=== PATIENT | female | born 1975 | race Caucasian/White ===

== ENCOUNTER 2020-05-02 08:40 | Outpatient (CLI) | payer BC, SELFPAY ==
--- NOTE | 2020-05-02 08:48 | MM_ITS ---
WS: [id number] BILATERAL DIGITAL SCREENING MAMMOGRAPHY WITH CAD CLINICAL INFORMATION: BREAST DENSITY HISTORY: Right breast soreness COMPARISON: TECHNIQUE: Bilateral CC and MLO views. FINDINGS: Scattered fibroglandular densities bilaterally. Stable ovoid nodule 12:00 position right breast measu ring 9 mm. A few additional stable well-circumscribed isodense nodules. No suspicious focal mass, asy mmetry, calcifications, or architectural distortion. Ultrasound of the right breast is pending in the area of concern. ULTRASOUND BREAST RIGHT TECHNIQUE: Ultrasound right breast focused area of concern. CLINICAL INFORMATION: BREAST DENSITY COMPARISON: None. FINDINGS: Ultrasound right breast 12:00 position. Hypoechoic and partially cystic appearing lesion with interna l echoes and internal debris measuring 6.7 x 5.4 x 5.7 mm. Small amount of peripheral nodularity. Thi s most likely represents a complex cyst but Recommend further evaluation with ultrasound-guided breas t biopsy/aspiration. MM/[place] [id number] IMPRESSION: BI-RADS: 4A-Suspicious: Low FOLLOW UP: US Guided Biopsy Recommended
== END 2020-05-02 08:41 | disposition home or self-care (01) ==
LOC: RADSHAW 08:44
PROVIDERS: PCP Family Medicine; Visit Provider Family Medicine
DX: N64.4 Mastodynia (principal); N63.15 Unspecified lump in the right breast, overlapping quadrants
CPT/HCPCS: 76642; 77066

== ENCOUNTER 2022-12-15 09:22 | Outpatient (CLI) | payer BC, SELFPAY ==
--- NOTE | 2022-12-15 09:31 | MM_ITS ---
WS: [id number] BILATERAL SCREENING DIGITAL TOMOSYNTHESIS MAMMOGRAM WITH CAD HISTORY: SCREENING COMPARISON: 05/02/2020, 06/16/2016 and 06/28/2015 Bilateral CC and MLO views with tomosynthesis and synthetic mammography submitted. Computer aided det ection analyzed. Breast composition: There are scattered areas of fibroglandular density. No suspicious masses, microc alcifications or architectural distortion. Nodules and asymmetries are stable. MM/[place] [id number] IMPRESSION: BI-RADS: 2-Benign FOLLOW UP: 1 Year Follow-up
== END 2022-12-15 09:23 | disposition home or self-care (01) ==
LOC: RAD 09:26
PROVIDERS: PCP Family Medicine; Visit Provider Family Medicine
DX: Z12.31 Encounter for screening mammogram for malignant neoplasm of breast (principal)
CPT/HCPCS: 77063; 77067

== ENCOUNTER 2022-12-21 14:00 | Oncology outpatient (recurring) (ONCR) | payer BC, SELFPAY ==
[2022-12-10] MEDS: acetaminophen 325 mg Tablet 650 MG PO (14:43)
[2022-12-10] MEDS: diphenhydrAMINE 50 mg/mL SDV 1mL 25 MG IVP (14:45)
[2022-12-10] MEDS: sodium chloride 0.9% 250 ML 75 ML IV (14:46)
[2022-12-10] MEDS: iron sucrose 200 MG in sodium chloride 0.9% (100 ml) 100 ML 220 MG IV (14:51)
[2022-12-10 15:42] VITALS: BP 138/90; PULSE 90; RESP 16; TEMP 36.7; O2SAT 99
[2022-12-14] MEDS: diphenhydrAMINE 50 mg/mL SDV 1mL 25 MG IVP (14:24)
[2022-12-14] MEDS: acetaminophen 325 mg Tablet 650 MG PO (14:24)
[2022-12-14] MEDS: sodium chloride 0.9% 250 ML IV (14:25)
[2022-12-14] MEDS: iron sucrose 200 MG in sodium chloride 0.9% (100 ml) 100 ML 220 MG IV (14:31)
[2022-12-14 15:19] VITALS: BP 117/78; PULSE 83; RESP 16; TEMP 36.1; O2SAT 97
[2022-12-16] MEDS: acetaminophen 325 mg Tablet 650 MG PO (14:04)
[2022-12-16] MEDS: diphenhydrAMINE 50 mg/mL SDV 1mL 25 MG IVP (14:04)
[2022-12-16] MEDS: sodium chloride 0.9% 250 ML 75 ML IV (14:04)
[2022-12-16] MEDS: iron sucrose 200 MG in sodium chloride 0.9% (100 ml) 100 ML 220 MG IV (14:23)
[2022-12-16 15:20] VITALS: BP 113/76; PULSE 81; RESP 16; TEMP 36.1; O2SAT 98
[2022-12-18] MEDS: sodium chloride 0.9% 250 ML 75 ML IV (09:56)
[2022-12-18] MEDS: acetaminophen 325 mg Tablet 650 MG PO (09:56)
[2022-12-18] MEDS: diphenhydrAMINE 50 mg/mL SDV 1mL 25 MG IVP (09:56)
[2022-12-18] MEDS: iron sucrose 200 MG in sodium chloride 0.9% (100 ml) 100 ML 220 MG IV (10:26)
[2022-12-18 11:16] VITALS: BP 117/81; PULSE 80; RESP 16; TEMP 36.5; O2SAT 98
[2022-12-21] MEDS: diphenhydrAMINE 50 mg/mL SDV 1mL 25 MG IVP (13:48)
[2022-12-21] MEDS: acetaminophen 325 mg Tablet 650 MG PO (13:49)
[2022-12-21] MEDS: sodium chloride 0.9% 250 ML 75 ML IV (13:50)
[2022-12-21] MEDS: iron sucrose 200 MG in sodium chloride 0.9% (100 ml) 100 ML 220 MG IV (14:09)
[2022-12-21 14:57] VITALS: BP 120/83; PULSE 92; RESP 16; TEMP 36.3; O2SAT 98
== END 2023-01-08 23:59 | disposition home or self-care (01) ==
PROVIDERS: PCP Family Medicine; Visit Provider Family Medicine
DX: E61.1 Iron deficiency (principal)
CPT/HCPCS: 96365; 96375; J1200; J1756; J7050

== ENCOUNTER 2024-03-17 11:42 | Outpatient (CLI) | payer BC, SELFPAY ==
--- NOTE | 2024-03-17 11:47 | MM_ITS ---
WS: [id number] BILATERAL SCREENING DIGITAL TOMOSYNTHESIS MAMMOGRAM WITH CAD HISTORY: SCREENING COMPARISON: 12/15/2022, 05/02/2020 Bilateral CC and MLO views with tomosynthesis and synthetic mammography submitted. Computer aided det ection analyzed. Breast composition: There are scattered areas of fibroglandular density. No suspicious masses, microc alcifications or architectural distortion. Nodule which is probably a lymph node is unchanged along t he inferior LEFT breast. No new mass or nodule. No suspicious grouping of calcifications. MM/[place] [id number] IMPRESSION: BI-RADS: 2-Benign FOLLOW UP: 1 Year Follow-up
== END 2024-03-17 11:43 | disposition home or self-care (01) ==
LOC: RAD 11:43
PROVIDERS: PCP Family Medicine; Visit Provider Family Medicine
DX: Z12.31 Encounter for screening mammogram for malignant neoplasm of breast (principal); R92.323 Mammographic fibroglandular density, bilateral breasts; N63.20 Unspecified lump in the left breast, unspecified quadrant
CPT/HCPCS: 77063; 77067

== ENCOUNTER 2024-06-07 19:23 | Emergency (ER) | payer BC, SELFPAY ==
[2024-06-07 19:27] VITALS: BP 160/81; PULSE 104; RESP 18; TEMP 37; O2SAT 100; BMI 35.1
--- NOTE | 2024-06-07 19:30 | XRR_ITS ---
PROCEDURE INFORMATION: Exam: XR Chest Exam date and time: 06/07/2024 7:57 PM Age: 49 years old Clinical indication: Dyspnea; Additional info: SOB TECHNIQUE: Imaging protocol: Radiologic exam of the chest. Views: 1 view. COMPARISON: No relevant prior studies available. FINDINGS: Lungs: Unremarkable. No consolidation. Pleural spaces: Unremarkable. No pleural effusion. No pneumothorax. Heart/Mediastinum: Unremarkable. No cardiomegaly. Bones/joints: Unremarkable. XR/XR chest 1V portable [id number] IMPRESSION: No acute findings.
[2024-06-07 19:42] LABS: Basophils % 0.3 %; Eosinophils # 0.1 10^3/uL (0.0-0.8); Eosinophils % 1.5 %; Hematocrit 30.5 % (36-47); Lymphocytes # 2.4 10^3/uL (0.8-4.8); Lymphocytes % 27.7 %; Mean Corpuscular HGB Conc 28.2 g/dL (30-55); Mean Corpuscular Hemoglobin 19.2 pg (27-33); Mean Corpuscular Volume 68.2 fl (85-98); Mean Platelet Volume 9.2 fL (7.4-10.4); Monocytes # 0.4 10^3/uL (0.2-0.9); Monocytes % 4.2 %; Neutrophils # 5.81 10^3/uL (1.8-7.7); Nucleated Red Blood Cells % 0 %; Platelet Count 354 10^3/cmm (157-399); Red Blood Count 4.47 10^6/uL (3.85-5.65); Red Cell Distribution Width 20.7 % (12.1-15.1); White Blood Count 8.81 10^3/uL (3.29-11.43)
--- NOTE | 2024-06-07 19:52 | ECG_ITS ---
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 Measurements Intervals [place] Rate: 96 P: 32 GA: 149 QRS: 2 QRSD: 92 T: 18 QT: 355 QTc: 449 Interpretive Statements SINUS RHYTHM MINIMAL VOLTAGE CRITERIA FOR LVH, CONSIDER NORMAL VARIANT [MEETS CRITERIA IN ONE OF: R(aVL), S(V1), R(V5), R(V5/V6)+S(V1)] No previous ECG available for comparison Electronically Signed On 06-08-2024 9:02:59 CDT by Malachi Joaquin M.D. [id number]
[2024-06-07 19:56] VITALS: BP 150/111; PULSE 93; RESP 18; O2SAT 100
--- NOTE | 2024-06-07 19:59 | ED_ITS ---
HPI - Recheck/Abnormal Lab/Rx 2 General: Chief Complaint: Recheck/Abnormal Lab/Rx Stated Complaint: sob Time Seen by Provider: 06/07/24 19:45 History of Present Illness: Patient has had worsening exertional dyspnea for about a week. She says finally her made her come in today. Says she was post to be getting iron infusions but has not been. Has mild cough. No chest pain. No abdominal pain. No nausea or vomiting. No lower extremity swelling. Related Data Allergies Allergy/AdvReac Type Severity Reaction Status Date / Time No Known Allergies Allergy Verified 12/10/22 14:34 Review of Systems 2 Narrative: Constitutional symptoms: Negative except as documented in HPI. Skin symptoms: Negative except as documented in HPI. Eye symptoms: Negative except as documented in HPI. ENMT symptoms: Negative except as documented in HPI. Respiratory symptoms: Negative except as documented in HPI. Cardiovascular symptoms: Negative except as documented in HPI. Gastrointestinal symptoms: Negative except as documented in HPI. Genitourinary symptoms: Negative except as documented in HPI. Musculoskeletal symptoms: Negative except as documented in HPI. Neurologic symptoms: Negative except as documented in HPI. Psychiatric symptoms: Negative except as documented in HPI. Endocrine symptoms: Negative except as documented in HPI. Physical Exam 2 Narrative: EXAM NARRATIVE: General: Alert, no acute distress. Skin: Warm, dry. Head: Normocephalic, atraumatic. Neck: Supple, trachea midline. Eye: Extraocular movements are intact. Ears, nose, mouth and throat: mucosa moist. Cardiovascular: Regular, Normal peripheral perfusion. Respiratory: Lungs are clear to auscultation, respirations are non-labored, breath sounds are equal, Symmetrical chest wall expansion. Gastrointestinal: Soft, Nontender, Non distended Musculoskeletal: Normal ROM, no deformity. Neurological: Alert and oriented, No focal neurological deficit observed. Psychiatric: Cooperative, appropriate mood & affect. Course 2 Vital Signs: Vital signs: Vital Signs Temperature 98.6 F 06/07/24 19:27 Pulse Rate 93 06/07/24 19:56 Respiratory Rate 18 06/07/24 19:56 Blood Pressure 150/111 06/07/24 19:56 Pulse Oximetry 100 06/07/24 19:56 Oxygen Delivery Me thod Room Air 06/07/24 19:56 [facility] - Recheck/Abnormal Lab/Rx Medical Decision Making Medical decision making: Differential diagnosis for patient presenting with generalized weakness including but not limited to and based on the above HPI, review of systems and physical exam: Sepsis. Dehydration. Renal failure. Electrolyte abnormalities. Anemia. Congestive heart failure. Hypotension. Coronary syndrome. Hepatitis. Cirrhosis. Infections such as pneumonia, urinary tract infection, Tick bourne illness, Cellulitis, Viral infections including influenza and Covid-19. Workup: labwork and lab/exam driven imaging ordered to evaluate, rule in and rule out above pathologies. EKG: Time 1951. Normal sinus rhythm, No ST-T changes, no ectopy, normal CO & QRS intervals, This was reviewed and interpreted by myself the ER physician at 1954. Chest x-ray: No acute process. No infiltrate. No pneumothorax. This was reviewed and interpreted by myself the ER physician. Lab Review: Laboratory results were reviewed and interpreted by myself the emergency room physician. Patient does have anemia with a hemoglobin of 8.6 but this does not warrant transfusion at this time. MCV is 68 which would indicate iron deficiency anemia. No leukocytosis. No renal failure. I reviewed the patient's medical record. Reexamination: Patient remained stable. No increased work of breathing. No altered mental status. No focal motor deficits. Discussed that she is not at the point of needing transfusion but she does need to get back on her iron supplementation and follow with her primary care provider. No other acute findings. No abnormalities of her chest x-ray. No renal failure. No signs of heart issues. Assessment and plan: Anemia Dyspnea - Discharged home - Discussed findings and plan with patient. Answered any questions. - All laboratory values were reviewed and interpreted personally by myself, the ER physician - All imaging was reviewed and interpreted personally by myself, the ER physician. - Evaluation and treatment of this problem were appropriate in the emergency setting Lab Data 06/07/24 19:37 06/07/24 19:37 Laboratory Results WBC 8.81 10^3/uL (3.29-11.43) 06/07/24 19:37 RBC 4.47 10^6/uL (3.85-5.65) 06/07/24 19:37 Hgb 8.60 g/dL (11.27-16.99) L 06/07/24 19:37 Hct 30.5 % (36-47) L 06/07/24 19:37 MCV 68.2 fl (85-98) L 06/07/24 19:37 MCH 19.2 pg (27-33) L 06/07/24 19:37 MCHC 28.2 g/dL (30-55) L 06/07/24 19:37 RDW 20.7 % (12.1-15.1) H 06/07/24 19:37 Plt Count 354 10^3/cmm (157-399) 06/07/24 19:37 MPV 9.2 fL (7.4-10.4) 06/07/24 19:37 Neut % (Auto) 66.0 % 06/07/24 19:37 Lymph % (Auto) 27.7 % 06/07/24 19:37 Barron % (Auto) 4.2 % 06/07/24 19:37 Eos % (Auto) 1.5 % 06/07/24 19:37 Baso % (Auto) 0.3 % 06/07/24 19:37 Neut # (Auto) 5.81 10^3/uL (1.8-7.7) 06/07/24 19:37 Lymph # (Auto) 2.4 10^3/uL (0.8-4.8) 06/07/24 19:37 Barron # (Auto) 0.4 10^3/uL (0.2-0.9) 06/07/24 19:37 Eos # (Auto) 0.1 10^3/uL (0.0-0.8) 06/07/24 19:37 Baso # (Auto) 0.0 10^3/uL (0.0-0.1) 06/07/24 19:37 Nucleated RBC % (auto) 0 % 06/07/24 19:37 Nucleated RBCs # 0.0 /100WBC 06/07/24 19:37 Sodium 141 mmol/L (136-145) 06/07/24 19:37 Potassium 4.0 mmol/L (3.5-5.1) 06/07/24 19:37 Chloride 104 mmol/L (98-107) 06/07/24 19:37 Carbon Dioxide 23 mmol/L (22-29) 06/07/24 19:37 Anion Gap 18.0 (5-19) 06/07/24 19:37 BUN 17 mg/dL (6-20) 06/07/24 19:37 Creatinine 0.7 mg/dL (0.5-0.9) 06/07/24 19:37 GFR Calculation 89.7 mL/min (90-130) L 06/07/24 19:37 Glucose 93 mg/dL (65-115) 06/07/24 19:37 Calculated Osmolality 293 mOsm/kg (285-295) 06/07/24 19:37 Calcium 9.4 mg/dL (8.5-10.5) 06/07/24 19:37 Total Bilirubin 0.5 mg/dL (0.15-1.2) 06/07/24 19:37 AST 15 U/L (0-32) 06/07/24 19:37 ALT 18 U/L (0-33) 06/07/24 19:37 Alkaline Phosphatase 88 U/L (35-105) 06/07/24 19:37 Total Protein 7.7 g/dL (6.6-8.7) 06/07/24 19:37 Albumin 4.5 g/dL (3.5-5.2) 06/07/24 19:37 Globulin 3.2 g/dL (1.3-4.6) 06/07/24 19:37 Lipase 34 U/L (13-60) 06/07/24 19:37 HCG, Qual Negative (Negative) 06/07/24 19:37 All radiology interpretation(s) finalized by discharge Discharge Plan Discharge Patient Disposition: Home Clinical Impression: Anemia, Dyspnea Condition: Stable Discharge Orders: Discharge ED (Routine); Ordered 06/07/24 Ordered By: Ada Roberson Referrals: Ronnie Alva MD [Primary Care Provider] - Discharge Diet: Usual diet Discharge Activity: Increase activity as tolerated Patient Instructions: Anemia (ED) Activity Restrictions/Additional Instructions: Thank you for choosing [facility] for your healthcare needs today. Please realize this is an emergency room and that we are providing you with a medical screening exam and this may not be complete and all inclusive of all the testing and or work up that you may need to determine your ailment or severity of your illness. You have been screened and evaluated and felt safe for discharge. Health conditions do change or evolve sometimes and as such it is important that you follow up with your Primary Doctor to be re checked, 3-5 days is a general good time frame for follow up. You are always welcome to return to the ED for re assessment if your symptoms are worsening or you have new concerns Coding Level of Care Code ED Tool Maker Apprentice for Denilson Rob
[2024-06-07 20:00] LABS: Alanine Aminotransferase 18 U/L (0-33); Albumin Level 4.5 g/dL (3.5-5.2); Alkaline Phosphatase 88 U/L (35-105); Aspartate Amino Transferase 15 U/L (0-32); Blood Urea Nitrogen 17 mg/dL (6-20); Calcium 9.4 mg/dL (8.5-10.5); Carbon Dioxide 23 mmol/L (22-29); Chloride 104 mmol/L (98-107); Creatinine Clr Calc Pharmacy 101.7863; Globulin 3.2 g/dL (1.3-4.6); Glomerular Filtration Rate 89.7 mL/min (90-130); Glucose 93 mg/dL (65-115); Lipase 34 U/L (13-60); Osmolality Calculated 293 mOsm/kg (285-295); Sodium 141 mmol/L (136-145); Total Bilirubin 0.5 mg/dL (0.15-1.2); Total Protein 7.7 g/dL (6.6-8.7)
[2024-06-07 20:13] LABS: HCG, Serum Qual Negative (Negative)
[2024-06-07 20:16] VITALS: BP 147/73; PULSE 93; RESP 16; O2SAT 93
[2024-06-07 22:36] VITALS: BP 147/73; PULSE 93; RESP 16; O2SAT 97
== END 2024-06-07 22:38 | disposition home or self-care (01) ==
PROVIDERS: Emergency Medicine; Emergency Provider Emergency Medicine; PCP Family Medicine
DX: D64.9 Anemia, unspecified (principal); R06.00 Dyspnea, unspecified
CPT/HCPCS: 36415; 71045; 80053; 83690; 84703; 85025; 93005; 99285

== ENCOUNTER → 2024-07-05 08:03 | Outpatient (BNVA) | payer BC, SELFPAY | PROVIDERS: PCP Family Medicine; Visit Provider Nurse Practitioner Women's Health | DX: N83.292 Other ovarian cyst, left side (principal); N94.6 Dysmenorrhea, unspecified | CPT/HCPCS: 76830 ==

== ENCOUNTER 2024-07-10 15:00 | Oncology outpatient (recurring) (ONCR) | payer BC, SELFPAY ==
[2024-06-30 08:16] VITALS: BP 129/87; PULSE 83; RESP 17; TEMP 36.5; O2SAT 95
[2024-06-30] MEDS: sodium chloride 0.9% 250 ML 75 ML IV (08:39)
[2024-06-30] MEDS: iron sucrose 200 MG in sodium chloride 0.9% (100 ml) 100 ML 220 MG IV (08:46)
[2024-06-30 09:35] VITALS: BP 123/85; PULSE 80; RESP 16; TEMP 36.7; O2SAT 97
[2024-07-03] MEDS: iron sucrose 200 MG in sodium chloride 0.9% (100 ml) 100 ML 220 MG IV (13:27)
[2024-07-03 13:31] VITALS: BP 135/91; PULSE 87; RESP 18; TEMP 36.9; O2SAT 97
[2024-07-03 13:59] VITALS: BP 128/86; PULSE 89; RESP 16; TEMP 36.6; O2SAT 96
[2024-07-05 14:26] VITALS: BP 134/88; PULSE 86; RESP 16; TEMP 36.6; O2SAT 96
[2024-07-05] MEDS: iron sucrose 200 MG in sodium chloride 0.9% (100 ml) 100 ML 220 MG IV (14:45)
[2024-07-05 15:25] VITALS: BP 147/96; PULSE 82; TEMP 36.9; O2SAT 94
[2024-07-07] MEDS: sodium chloride 0.9% 250 ML 75 ML IV (09:16)
[2024-07-07] MEDS: iron sucrose 200 MG in sodium chloride 0.9% (100 ml) 100 ML 220 MG IV (09:17)
[2024-07-10] MEDS: iron sucrose 200 MG in sodium chloride 0.9% (100 ml) 100 ML 220 MG IV (14:21)
[2024-07-10 15:02] VITALS: BP 122/85; PULSE 84; RESP 16; TEMP 37; O2SAT 95
== END 2024-07-10 23:59 | disposition home or self-care (01) ==
PROVIDERS: PCP Family Medicine; Visit Provider Internal Medicine Hematology & Oncology
DX: Z53.9 Procedure and treatment not carried out, unspecified reason (principal); Z79.899 Other long term (current) drug therapy; D50.9 Iron deficiency anemia, unspecified
CPT/HCPCS: 96365; J1756; J7050

== ENCOUNTER 2024-11-21 11:30 | Observation (INO) | payer BC, SELFPAY ==
--- NOTE | 2024-11-14 10:43 | ANES.PREANE2 ---
Pre-Anesthetic Assessment Height/Weight: Height 1.57 m Operation Date: 11/21/24 08:55 Proposed Procedures p Laparoscopic Assist Vaginal Hysterectomy 82139, N92.4, D50.9(Not Applicable) - Harley Koo MD Familial anesthetic complications: None Was Beta Uriah taken within 24 hours: N/A Was Clonidine taken within 24 hours: N/A Social No alcohol and No tobacco Exam alert, oriented x 3, clear to auscultation bilaterally and regular rate & rhythm Airway Mallampati: Class III Dentition: other (missing) CV/HEM Hypertension (severe whitecoat HTN/anxiety - consider versed) Anesthetic Plan ASA status: 2 Anesthesia: General Risk of > 500 ml blood loss (7ml/kg in children): No Medications/Allergies Home Medications ?Medication ?Instructions ?Recorded ?Confirmed ?Last Taken ?Type ropinirole 1 mg tablet 1 mg PO DAILY 06/16/24 11/14/24 11/14/24 History metoprolol succinate 50 mg 50 mg PO DAILY 11/13/24 11/14/24 11/14/24 History tablet,extended release 24 hr escitalopram oxalate 10 mg tablet 10 mg PO DAILY 11/14/24 11/14/24 11/14/24 History Allergies Allergy/AdvReac Type Severity Reaction Status Date / Time No Known Allergies Allergy Verified 11/14/24 10:01 [facility] Anesthesia Family History Mother Breast cancer Diabetes Hyperlipidemia Hypertension Father Diabetes Hyperlipidemia Hypertension Sister Diabetes Hyperlipidemia Hypertension Stroke Grandmother Diabetes Denies family history of Colon cancer Ovarian cancer Prostate cancer Heart disease Uterine cancer Thyroid disease Social History Smoking and tobacco/nicotine status: never used tobacco/nicotine Data Anesthesia 11/14/24 10:30 11/14/24 10:30 Cardiac Studies: No Data to Display
[2024-11-14 10:50] LABS: Basophils % 0.6 %; Eosinophils # 0.1 10^3/uL (0.0-0.8); Eosinophils % 2.1 %; Hematocrit 42.2 % (36-47); Lymphocytes # 1.8 10^3/uL (0.8-4.8); Lymphocytes % 27.8 %; Mean Corpuscular HGB Conc 31.8 g/dL (30-55); Mean Corpuscular Hemoglobin 26.7 pg (27-33); Mean Corpuscular Volume 84.2 fl (85-98); Mean Platelet Volume 9.8 fL (7.4-10.4); Monocytes # 0.3 10^3/uL (0.2-0.9); Monocytes % 5.4 %; Neutrophils # 4.02 10^3/uL (1.8-7.7); Neutrophils % 63.8 %; Nucleated Red Blood Cells % 0 %; Platelet Count 323 10^3/cmm (157-399); Red Blood Count 5.01 10^6/uL (3.85-5.65)
[2024-11-14 10:53] LABS: Bilirubin Urine Negative (Negative); Blood Urine 2+ (Negative); Glucose Urine UA Negative (Normal); Ketones Urine Negative (Negative); Leukocyte Esterase Urine Negative (Negative); Nitrate Urine Negative (Negative); Protein Urine Negative (Negative); Specific Gravity, Urine 1.022 (1.005-1.030); Urine Appearance Clear (CLEAR); Urine Color Yellow (Yellow); Urobilinogen Urine 0.2 mg/dL (Negative); pH Urine 5.5 (5-7)
[2024-11-14 10:58] LABS: Add Urine Microscopic? YES; Bacteria Urine Trace /hpf; WBC Urine 0-5 /hpf (0-5)
[2024-11-14 11:06] LABS: Alanine Aminotransferase 18 U/L (0-33); Albumin Level 4.2 g/dL (3.5-5.2); Alkaline Phosphatase 103 U/L (35-105); Anion Gap 17.4 (5-19); Aspartate Amino Transferase 17 U/L (0-32); Blood Urea Nitrogen 14 mg/dL (6-20); Calcium 9.1 mg/dL (8.5-10.5); Carbon Dioxide 25 mmol/L (22-29); Chloride 101 mmol/L (98-107); Globulin 3.3 g/dL (1.3-4.6); Glomerular Filtration Rate 89.7 mL/min (90-130); Glucose 154 mg/dL (65-115); Osmolality Calculated 290 mOsm/kg (285-295); Potassium 5.4 mmol/L (3.5-5.1); Sodium 138 mmol/L (136-145); Total Bilirubin 0.2 mg/dL (0.15-1.2); Total Protein 7.5 g/dL (6.6-8.7)
[2024-11-21] VITALS (19 sets, daily range): BP systolic 96–135; BP diastolic 55–90; PULSE 61–107; RESP 13–17; TEMP 36.6–36.8; O2SAT 93–99; BMI 33.6
[2024-11-21] MEDS: sodium chloride 0.9% 1,000 ML 30 ML IV (07:48)
[2024-11-21] MEDS: scopolamine 1 mg PATCH 1 PATCH TRANSDERMA (07:48)
[2024-11-21] MEDS: metroNIDAZOLE IV 500 MG/100 ML PREMIX 100 MG IV (07:54)
--- NOTE | 2024-11-21 08:05 | P.ANESUD_ITS ---
Pre-Anesthetic Update Pre-Anesthetic Assessment: Date of Surgery/Procedure: 11/21/24 Preop Beverly gnosis: menorrahgia, Anemia Proposed Procedure: Operation Date: 11/21/24 08:55 Proposed Procedures p Laparoscopic Assist Vaginal Hysterectomy 67199, N92.4, D50.9(Not Applicable) - Harley Koo MD Changes from Pre-Anesthetic Assessment: No changes since her anesthesia evaluation last week. Patient took her metoprolol today. Preop BP 135/90. No prior issues with anesthesia. Type and screen pending. Plan for general anesthetic Last Intake: Intake Last Liquid Date 11/20/24 Last Liquid Time 20:30 Last Solid Date 11/20/24 Last Solid Time 20:30 Vitals: Temperature 98.0 F 11/21/24 07:26 Temperature Source Temporal Artery S can 11/21/24 07:26 Pulse Rate 99 11/21/24 07:26 Pulse Rhythm Regular 11/21/24 07:26 Pulse Strength 3+ Normal 11/21/24 07:26 Respiratory Rate 17 11/21/24 07:26 Blood Pressure 135/90 11/21/24 07:26 Blood Pressure Citlali n 105 11/21/24 07:26 Pulse Oximetry 98 11/21/24 07:26 Oxygen Delivery Me thod Room Air 11/21/24 07:26 Cardiac Studies: No Data to Display
--- NOTE | 2024-11-21 08:49 | W.PM.OPSUD ---
Surgery/Procedure H&P Update DATE OF PROCEDURE: November 21, 2024 DATE H&P PERFORMED: 11/13/24 H&P UPDATE INFORMATION: I have reviewed H&P completed within last 30 days, I have examined patient prior to procedure and No changes to prior documentation PREOP DIAGNOSIS: menorrahgia, Anemia PLANNED PROCEDURE: Operation Date: 11/21/24 08:55 Proposed Procedures p Laparoscopic Assist Vaginal Hysterectomy 93183, N92.4, D50.9(Not Applicable) - Harley Koo MD
[2024-11-21] MEDS: midazolam 1 mg/mL INJ 2 mL 2 MG IVP (08:53)
[2024-11-21] MEDS: ceFOXitin 2,000 mg SDV 2000 MG IVP (09:01)
[2024-11-21 09:03] LABS: OR HCG Qualitative Urine Negative (Negative)
[2024-11-21] MEDS: lidocaine-epi 2% PF 1:200,000 20 mL SDV 10 ML INJECTION (10:10)
[2024-11-21] MEDS: BUPivacaine 0.5% INJ 10 mL INJECTION (10:11)
--- NOTE | 2024-11-21 11:29 | W.PM.BPON ---
Date of Procedure: 11/21/24 Surgeon: Harley Koo MD Flight Attendant/Inflight Supervisor(s): Procedure(s) performed: Laparoscopic assisted vaginal hysterectomy, lysis of adhesion Findings of the procedure(s): Omental adhesions to anterior abdominal wall, enlarged irregular uterus Estimated blood loss: 200 mL Specimen(s) removed: Uterus and vaginal scar tissue Post-operative diagnosis: Status post LAVH
--- NOTE | 2024-11-21 11:31 | P.OP_ITS ---
Operative Report Date of procedure: November 21, 2024 Pre-op diagnosis: Menorrhagia unresponsive medical manage Post-op diagnosis: same Procedure done: Laparoscopic-assisted vaginal hysterectomy Lysis of adhesion Specimens removed/disposition: Uterus Vaginal scar tissue Surgeon: Harley Koo MD Estimated blood loss (mL): 200 IV fluids (mL): 1,000 Urine output (mL): 100 Procedure: After informed consent, the patient was taken to the operating room where general anesthesia was administered. Pre-Procedure Time-Out verifying the correct patient identity, correct procedure verified with consent, correct site and side, correct patient position, availability of correct implants and any special equipment or requirements was performed and acknowledge by the OR team. She was placed in the dorsal lithotomy position and prepped and draped in sterile fashion. The patient was examined under anesthesia and found to have a normal uterus with normal adnexa. A Harris catheter was placed in the bladder. A weighted speculum was placed in the vagina, and the anterior lip of cervix was grasped with the single toothed tenaculum. A uterine manipulator was advanced into the endocervical. Tenaculum was removed after uterine manipulator was secured. The speculum was removed from the vagina. The attention was brought to abdomen after changing gloves. The base of the umbilicus was grasped with an Allis clamp and with 2 towel clamp bilaterally tenting up the umbilicus an intraumbilical incision was made with a scalpel. While tenting up on the abdomen, a Verres needle with sleeve was admitted into the intra-abdominal cavity. A saline drop test was performed and noted to be within normal limits. Pneumoperitoneum was attained with 4 liters of carbon dioxide. The Verres needle was removed. Then a 5 mm Optiview trocar and cannula were inserted under direct visualization without complications. Trocars were removed and the laparoscope was inserted and connected to the video camera light source. A 5 mm trocar and cannula were placed in the right lower quadrant under direct visualization after infiltration of 0.5% Marcaine with epinephrine. A 5 mm trocar and cannula were placed in the left lower quadrant under direct visualization after infiltration of 0.5% Marcaine with epinephrine. The pelvic contents were visualized and noted a small uterus, deep cul-de-sac, normal bilateral fallopian tubes and ovaries, normal appendix, and both ureters were identified crossing the pelvic brim and pelvic sidewall. The left round ligament was coagulated and transected using LigaSure device. The left broad ligament was opened down to the level of the uterine artery and vein. The left tubo-ovarian ligament was clamped, sealed and then transected using the LigaSure. The right round ligament was coagulated and transected using LigaSure, and the right broad ligament was opened down to the level of the right uterine artery and vein. The right tubo-ovarian ligament was clamped, sealed and transected using the LigaSure device. Peritoneum of the lower uterine segment was entered using LIGASURE, and the bladder was dissected off the lower uterine segment using blunt dissection. Careful inspection revealed complete hemostasis. A weighted speculum was placed in the posterior vaginal wall and the right-angle retractor used to visualize the cervix. The cervix was grasped across the anterior lip with a single-toothed tenaculum and circumferentially infiltrated with 1% Xylocaine with epinephrine at this time. The cervix was circumferentially excised with the scalpel. The vaginal mucosa was dissected superiorly with sharp dissection. The anterior peritoneal reflection was identified, and it was entered with Metzenbaum scissors. A posterior colpotomy was made through the cul-de-sac space. The posterior peritoneum was identified in similar fashion and Metzenbaum scissors were used to enter the cul-de-sac. At this time, a weighted speculum was placed, advanced posteriorly into the cul-de-sac. At this time, the left and right uterosacral ligaments were isolated and ligated with 0 Vicryl. The LigaSure device was then used in a serial fashion up through the cardinal ligaments bilaterally. Finally, the uterine arteries were cross-clamped, cut, and ligated with the LigaSure device. LigaSure device was then used up through the broad ligaments superiorly and jennifer llderek the uterus was rotated posteriorly. The left and right tubes were then cross-clamped and ligated with LigaSure device. The uterus was excised and submitted for pathologic evaluation. Good hemostasis noted. No other abnormalities were noted in the pelvic cavity. At this time, instruments were removed from the patient's abdominopelvic cavity. Vaginal cuff closure and peritoneum were incorporated into one layer with 0 Vicryl suture in a continuous running interlocking fashion. Hemostasis was noted to be achieved. Harris catheter was then noted yielding clear blue/green urine. The patient tolerated the procedure well and was taken to the recovery room in a stable condition. Sponge and needle counts were correct x3.
--- NOTE | 2024-11-21 12:40 | ANE.PACU2 ---
Inpatient post-anesthesia follow up: Airway intact: Yes Vital signs: Temperature 98.0 F Pulse Rate 91 Respiratory Rate 16 Blood Pressure 106/67 Pulse Oximetry 95 Oxygen Delivery Me thod Room Air Oxygen Flow Rate 6 Fraction of Inspir ed Oxygen Hydration adequate: Yes Nausea and vomiting: No Pain level: 1 Mental status: Baseline
[2024-11-21] MEDS: HYDROcodone-acetaminophen 5-325 mg Tablet PO ×2 (15:25→21:31)
[2024-11-21] MEDS: ketorolac 30 mg/mL INJ IVP (18:25)
[2024-11-21] MEDS: dextrose 5%-lactated ringers 1,000 ML 125 ML IV (18:25)
[2024-11-21] MEDS: docusate sodium 100 mg Capsule PO (18:25)
[2024-11-22] MEDS: ketorolac 30 mg/mL INJ IVP ×2 (00:10→06:09)
[2024-11-22 04:36] VITALS: BP 95/56; PULSE 63; RESP 16; TEMP 36.6; TEMP 36.7; O2SAT 96
[2024-11-22] MEDS: HYDROcodone-acetaminophen 5-325 mg Tablet PO (04:45)
[2024-11-22 04:49] LABS: Hematocrit 30.3 % (36-47); Mean Corpuscular HGB Conc 31.7 g/dL (30-55); Mean Corpuscular Hemoglobin 26.7 pg (27-33); Mean Corpuscular Volume 84.4 fl (85-98); Mean Platelet Volume 9.7 fL (7.4-10.4); Platelet Count 245 10^3/cmm (157-399); Red Blood Count 3.59 10^6/uL (3.85-5.65); Red Cell Distribution Width 13.7 % (12.1-15.1); White Blood Count 9.46 10^3/uL (3.29-11.43)
--- NOTE | 2024-11-22 07:58 | P.DS_ITS ---
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 Sanchez 49-year-old female with a history of abnormal uterine bleeding unresponsive to medical management. She was admitted for planned laparoscopic assisted vaginal hysterectomy. The procedure was performed without complication. Overnight observation was uneventful. She is afebrile and hemodynamically stable postoperative day 1. Tolerating diet well. Ambulating without difficulty. She was counseled regarding pelvic rest for 6 weeks (no sex, no tampons, no vaginal douches). Return to the emergency room if any fever, increased bleeding or pain. She was also advised against heavy lifting limited to 10 pounds. Physical Exam Narrative: GA: Alert and oriented ?3. HEENT: WNL. Heart: Regular rate and rhythm. Lungs: Clear to auscultation bilaterally. Abdomen: Bowel sounds present, nontender, minimal tenderness, incision clean and dry, no redness, pain or edema. WALLPAPER HANGER: spotting bleeding. Extremities: No edema, no cyanosis, no calves pain. Urinary Catheter Management: Harris: Cath Placed During This Visit: yes, but has since been removed by the nurse Reason for Continuing Indwelling Catheter: Decision to DC Catheter Urinary Catheter Date of Insertion: 11/21/24 Urinary Catheter Time of Insertion: 09:57 Date Urinary Catheter Removed: 11/22/24 Time Urinary Catheter Discontinued: 04:30 History History History 2 Term 2 0 Miscarriages/Ectopic 0 Living Children 2 Discharge Data Studies Completed and Pending Pending at discharge Category Date Time Status Pathology: Surgical [PTH] Routine Pth 11/21/24 11:05 Received Laboratory Results WBC 9.46 10^3/uL (3.29-11.43) 11/22/24 04:40 RBC 3.59 10^6/uL (3.85-5.65) L 11/22/24 04:40 Hgb 9.60 g/dL (11.27-16.99) L 11/22/24 04:40 Hct 30.3 % (36-47) L 11/22/24 04:40 MCV 84.4 fl (85-98) L 11/22/24 04:40 MCH 26.7 pg (27-33) L 11/22/24 04:40 MCHC 31.7 g/dL (30-55) 11/22/24 04:40 RDW 13.7 % (12.1-15.1) 11/22/24 04:40 Plt Count 245 10^3/cmm (157-399) 11/22/24 04:40 MPV 9.7 fL (7.4-10.4) 11/22/24 04:40 Neut % (Auto) 63.8 % 11/14/24 10:30 Lymph % (Auto) 27.8 % 11/14/24 10:30 [place] % (Auto) 5.4 % 11/14/24 10:30 Eos % (Auto) 2.1 % 11/14/24 10:30 Baso % (Auto) 0.6 % 11/14/24 10:30 Neut # (Auto) 4.02 10^3/uL (1.8-7.7) 11/14/24 10:30 Lymph # (Auto) 1.8 10^3/uL (0.8-4.8) 11/14/24 10:30 [place] # (Auto) 0.3 10^3/uL (0.2-0.9) 11/14/24 10:30 Eos # (Auto) 0.1 10^3/uL (0.0-0.8) 11/14/24 10:30 Baso # (Auto) 0.0 10^3/uL (0.0-0.1) 11/14/24 10:30 Nucleated RBC % (auto) 0 % 11/14/24 10:30 Nucleated RBCs # 0.0 /100WBC 11/14/24 10:30 Sodium 138 mmol/L (136-145) 11/14/24 10:30 Potassium 5.4 mmol/L (3.5-5.1) H 11/14/24 10:30 Chloride 101 mmol/L (98-107) 11/14/24 10:30 Carbon Dioxide 25 mmol/L (22-29) 11/14/24 10:30 Anion Gap 17.4 (5-19) 11/14/24 10:30 BUN 14 mg/dL (6-20) 11/14/24 10:30 Creatinine 0.7 mg/dL (0.5-0.9) 11/14/24 10:30 GFR Calculation 89.7 mL/min (90-130) L 11/14/24 10:30 Glucose 154 mg/dL (65-115) H 11/14/24 10:30 Calculated Osmolality 290 mOsm/kg (285-295) 11/14/24 10:30 Calcium 9.1 mg/dL (8.5-10.5) 11/14/24 10:30 Total Bilirubin 0.2 mg/dL (0.15-1.2) 11/14/24 10:30 AST 17 U/L (0-32) 11/14/24 10:30 ALT 18 U/L (0-33) 11/14/24 10:30 Alkaline Phosphatase 103 U/L (35-105) 11/14/24 10:30 Total Protein 7.5 g/dL (6.6-8.7) 11/14/24 10:30 Albumin 4.2 g/dL (3.5-5.2) 11/14/24 10:30 Globulin 3.3 g/dL (1.3-4.6) 11/14/24 10:30 Urine Color Yellow (Yellow) 11/14/24 10:30 Urine Appearance Clear (CLEAR) 11/14/24 10:30 Urine pH 5.5 (5-7) 11/14/24 10:30 Ur Specific [place] 1.022 (1.005-1.030) 11/14/24 10:30 Urine Protein Negative (Negative) 11/14/24 10:30 Urine Glucose (UA) Negative (Normal) 11/14/24 10:30 Urine Ketones Negative (Negative) 11/14/24 10:30 Urine Blood 2+ (Negative) A 11/14/24 10:30 Urine Nitrate Negative (Negative) 11/14/24 10:30 Urine Bilirubin Negative (Negative) 11/14/24 10:30 Urine Urobilinogen 0.2 mg/dL (Negative) 11/14/24 10:30 Ur Leukocyte Esterase Negative (Negative) 11/14/24 10:30 Urine RBC 6-10 /hpf (0-2) 11/14/24 10:30 Urine WBC 0-5 /hpf (0-5) 11/14/24 10:30 Ur Squamous Epith Cells 6-10 /hpf (0-5) 11/14/24 10:30 Amorphous Sediment Not Reportable 11/14/24 10:30 Urine Bacteria Trace /hpf (NONE) 11/14/24 10:30 Hyaline Casts 0.40 /lpf 11/14/24 10:30 Urine HCG, Qual Negative (Negative) 11/14/24 10:16 Blood Type O Negative 11/21/24 07:44 Rho(D) Type Rh negative 11/21/24 07:44 Antibody Screen Negative 11/21/24 07:44 Vitals Last Vital Signs Temp 98.0 F 11/22/24 04:36 Pulse 63 11/22/24 04:36 Resp 16 11/22/24 04:36 BP 95/56 11/22/24 04:36 Pulse Ox 96 11/22/24 04:36 O2 Del Method Room Air 11/22/24 04:36 O2 Flow Rate 6 11/21/24 12:08 Results Labs OB ([facility]): Blood Type O Negative 11/21/24 Antibody Screen Negative 11/21/24 Hct 30.3 % (36-47) L 11/22/24 Hgb 9.60 g/dL (11.27-16.99) L 11/22/24 Rho(D) Type Rh negative 11/21/24 Plt Count 245 10^3/cmm (157-399) 11/22/24 HCG, Qual Negative (Negative) 06/07/24 Discharge Plan Discharge Patient Disposition: Home Condition: Stable Prescriptions: New hydrocodone-acetaminophen 5-325 mg tablet 1 tab PO Q4H PRN (Reason: pain) Qty: 20 0RF docusate sodium [Colace] 100 mg capsule 100 mg PO BID Qty: 60 0RF ferrous sulfate [Iron (ferrous sulfate)] 325 mg (65 mg iron) tablet 325 mg PO BID Qty: 60 0RF acetaminophen 325 mg capsule 325 mg PO Q4H PRN (Reason: Postoperative fever or pain) Qty: 60 0RF ibuprofen 800 mg tablet 800 mg PO TID PRN (Reason: pain) Qty: 60 0RF Continued metoprolol succinate 50 mg tablet extended release 24 hr 50 mg PO DAILY ropinirole 1 mg tablet 1 mg PO DAILY escitalopram oxalate 10 mg tablet 10 mg PO DAILY Discharge Orders: Discharge Order (Routine); Ordered 11/22/24 Ordered By: Harley Koo Referrals: Harley Koo MD [Physician] - 12/29/24 9:45 am (* Your 6 week post op appointment is with Dr. Koo on 12/29/2024 at 9:15) Rosanne Douglas APN, DERICK [Nurse Practitioner] - 12/08/24 8:15 am (* Your 2 week post op appointment is with Rosanne Douglas on 12/08/2024 at 8:15am) Discharge Diet: Soft Mechanical Discharge Activity: Limit activity as instructed Patient Instructions: Acute Wound Care (DC), Laparoscopic Hysterectomy (DC), Vaginal Hysterectomy (DC), OB Discharge Report, OB Food/Drug Interaction Guide, Opioid Safety, Post Anesthesia Care Activity Restrictions/Additional Instructions: 1. Please call [facility] clinic on next working day to make your post-operative appointment in 2 weeks. 2. Please stay home until you come back to the clinic on first post- hospatilization check up. 3. Please follow instructions on your medications CAREFULLY. 4. If you have abdominal incision, do not cover it unless dressing is necessary because of drainage. OK to shower, but avoid bath. Leave steri-strips until they fall off. If they are still on one week after surgery, you may remove them. 5. If you had vaginal surgery or vaginal repair, Dr. Koo may instruct you to take SITZ bath. 6. Yellow, blood tinged odorous vaginal discharge is usually normal after hysterectomy or vaginal surgeries. 7. No SEXUAL INTERCOURSE, tampons, or douches until you are completely released from the post-operative care. 8. Avoid constipation by eating right and maybe using some Metamucil or Milk of Magnesia. 9. All prescription refills are given during the working hours. Please do no wait till it runs out. Call the clinic at [phone] before your medication runs out. The clinic will get in touch with your doctor to prescribe medications if necessary. 10. Please remain within 40 mile radius from our hospital because emergencies do happen now and then during the post-operative period. 11. If you have stairs at home, take one step at a time slowly and minimize the number of trips. It helps to stay in one floor for the next few days. No lifting except what you can lift by one hand until you are released from the post-operative care. 12. Driving is discouraged until you are well healed. It may be 3-4 weeks before you feel strong enough to drive. You should be able to turn and look through the rear window without pain and you should be able to push the brake pedal very hard without pain before you drive. No fast rules, but SAFETY should be your primary concern. DO NOT drive if you are on sedating medications such as narcotics. 13. Call the clinic (during working hours) to make urgent appointment or go to the Emergency room, if any of the following occurs: i. Vaginal bleeding becomes heavy, more than a period. ii. Incision becomes red and sore, or drains pus. iii. Your TEMPERATURE is over 100.4F or you have chill. iv. IV site becomes red and swollen (a little ``knot?? is usually OK) v. Persistent nausea and vomiting vi. Persistent constipation or diarrhea vii. Rash or allergic reaction to medications. Discharge Attestations METALLURGICAL ENGINEERING TEACHER Time Spent in Discharge Care*: greater than 30 min Coding Level of Care Code Acute Code for Chg Fwd
[2024-11-22 08:30] VITALS: BP 93/60; PULSE 73; RESP 16; TEMP 37.2; O2SAT 98
== END 2024-11-22 08:32 | disposition home or self-care (01) ==
LOC: OBGYN 11:32
PROVIDERS: Admitting Provider Obstetrics & Gynecology; PCP Family Medicine; Visit Provider Obstetrics & Gynecology
PROC: 0UT9FZZ Resection of Uterus, Via Natural or Artificial Opening With Percutaneous Endoscopic Assistance (ICD-10-PCS; CPT 58550; principal; 2024-11-21 08:45)
PROC: (CPT 58550; 2024-11-21 08:45)
DX: N92.4 Excessive bleeding in the premenopausal period (principal); D50.9 Iron deficiency anemia, unspecified; N88.8 Other specified noninflammatory disorders of cervix uteri; N89.8 Other specified noninflammatory disorders of vagina; K08.409 Partial loss of teeth, unspecified cause, unspecified class; Z79.899 Other long term (current) drug therapy
CPT/HCPCS: 58550; 36415; 80053; 81001; 81025; 85025; 85027; 86850; 86900; 88307; A4216; G0378; J0131; J0694; J1100; J1171; J1200; J1885; J2250; J2405; J2704; J3010; J3490; J7030; J7121

== ENCOUNTER 2025-07-15 17:32 | Emergency (ER) | payer BC, SELFPAY ==
--- OUTSIDE RECORDS SUMMARY | 2025-07-15 17:37 | XMS_ITS | Clinical Summary ---
Author Organization [facility] Address [address] Alcarazn: Epic Prelude ADT DIMPLE CRUZ [address] Care Team Providers Care Clinical Radiologist Name Role Phone Ronnie Osborne MD Primary Care Provider [phone] Allergies No known active allergies Active Problems Problem Noted Date Diagnosed Date Back pain 03/01/2013 Family History Medical History Relation Name Comments Diabetes Father Hypertension Father Diabetes Maternal Grandmother Diabetes Mother Cancer Paternal Aunt Cancer Paternal Cousin Cancer Paternal Grandfather Cancer Paternal Uncle Liver Disease Sister 1 Hypertension Sister 2 Relation Name Status Comments Father Maternal Grandmother Mother Paternal Aunt Paternal Cousin Paternal Grandfather Paternal Uncle Sister 1 Sister 2 Social History Tobacco Use Types Packs/Day Years Used Date Smoking Tobacco: Never Alcohol Use Standard Drinks/Week Comments No 0 (1 standard drink = 0.6 oz pur e alcohol) Comments Unknown Sex and Gender Information Value Date Recorded Sex Assigned at Not on file 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 Gender Identity Not on file Sexual Orientation Not on file Plan of Treatment Health Maintenance Due Date Last Done Comments DTAP/TDAP/TD VACCINES (1 - Tdap) 1996 HEPATITIS B VACCINES (1 of 3 - 19+ 3-dose series) 05/11 HPV/Cotest (21-29) 1998 CERVICAL CANCER SCREENING 2007 HPV/Cotest (30-65) 2007 PAP SMEAR 2007 COLORECTAL SCREENING 2022 Colorectal Cancer Screening 2022 FIT-DNA Q 3 years 2022 FIT/FOBT Q 1 year 2022 Flex Sig/CT Colonography Q 5 years 2022 BREAST CANCER SCREENING 03/17/2025 03/17/2024 INFLUENZA VACCINE (#1) 2025 Procedures Procedure Name Priority Date/Time Associated Diagnosis Comments MAMMO SCREEN BILAT W OR WO CAD Routine 03/17/2024 3:24 PM CDT from Last 3 Months or Most Recently Relevant to Health Maintenance Results * MAMMO SCREEN BILAT W OR WO CAD (03/17/2024 3:24 PM CDT) Anatomical Region Laterality Modality Breast Bilateral Mammography Barbara Salas DO MAMMO ORDERABLES Final Resu lt from Last 3 Months or Most Recently Relevant to Health Maintenance Care Teams Clinical Radiologist Relationship Specialty Start Date End Date Ronnie Osborne MD [address] [place] [address] PCP - General Family Practice 03/01/13
--- OUTSIDE RECORDS SUMMARY | 2025-07-15 17:37 | XMS_ITS | Clinical Summary ---
Author Organization [facility] Address [address] [place] [address] Care Team Providers Care Imaging Center Manager Name Role Phone Ronnie Osborne MD Primary Care Provider [phone] Allergies No known active allergies Medications cyclobenzaprine (FLEXERIL) 10 mg Oral tablet Take 10 mg by mouth 3 times daily as needed. Takes as needed Active naproxen sodium (ALEVE) 220 mg Oral Tab Take 220 mg by mouth every 4 hours as needed. Active ibuprofen (MOTRIN) 200 mg Oral Cap Take 1 Cap by mouth 1 time daily as needed. Takes 3-4 capsules as needed Active ampicillin (PRINCIPEN) 250 mg Oral Cap Take 250 mg by mouth 1 time daily as needed. Per patient Only takes when symptoms of kidney infection arise Active clidinium-chlor diazePOXIDE (LIBRAX) 5-2.5 mg Oral Cap Take 1 Cap by mouth 4 times daily as needed. Pt takes as needed for stomach pain Active Active Problems Problem Noted Date Diagnosed Date [...] = 0.6 oz pur e alcohol) Comments No Sex and Gender Information Value Date Recorded Sex Assigned at Not on file Legal Sex Female 3:54 PM CDT Gender Identity Not on file Sexual Orientation Not on file Occupation Industry Job Start Date Job End Date Not on file Not on file Not on file Not on file Last Filed Vital Signs Vital Sign Reading Time Taken Comments Blood Pressure 116/73 03/07/2013 2:45 PM CDT Pulse 88 03/07/2013 2:45 PM CDT Temperature 37 C (98.6 F) 03/07/2013 1:42 PM CDT Respiratory Rate 16 03/07/2013 2:45 PM CDT Oxygen Saturation 97% 03/07/2013 2:45 PM CDT Inhaled Oxygen Concentration - - Weight 60.8 kg (134 lb) 03/07/2013 1:42 PM CDT Height 157.5 cm (5' 2 ) 03/07/2013 1:42 PM CDT Body Mass Index 24.51 03/07/2013 1:42 PM CDT Plan of Treatment Health Maintenance Due Date Last Done Comments DTAP/TDAP/TD VACCINES (1 - Tdap) 1996 HEPATITIS B VACCINES (1 of 3 - 19+ 3-dose series) 05/11 HPV/Cotest (21-29) 1998 CERVICAL CANCER SCREENING 2007 HPV/Cotest (30-65) 2007 PAP SMEAR 2007 BREAST CANCER SCREENING 2017 COLORECTAL SCREENING 2022 Colorectal Cancer Screening 2022 FIT-DNA Q 3 years 2022 FIT/FOBT Q 1 year 2022 Flex Sig/CT Colonography Q 5 years 2022 INFLUENZA VACCINE (#1) 2025 Insurance [id number] [place], [place] [id number] [place] [address] ONE Care Teams Imaging Center Manager Relationship Specialty Start Date End Date Ronnie Osborne MD [address] [place] [address] PCP - General Family Practice 03/01/13
--- OUTSIDE RECORDS SUMMARY | 2025-07-15 17:37 | XMS_ITS | Encounter Summary ---
Author Organization [facility] Address [address] [place] [address] Care Team Providers Care Elevator Supervisor Name Role Phone Ronnie Osborne MD Primary Care Provider [phone] Reason for Referral * Outpatient Services (Routine) - Closed Specialty Diagnoses / Procedures Referred By Jeannine dial Referred To Contact Diagnoses Thoracic or lumbosacral neuritis or radiculitis, unspecified Procedures XR FLUORO NEEDLE GUIDANCE Gage Brady MD NO ADDRESS ON FILE Referral ID Status Reason Start Date Expiration Date Visits Re quested Visits Authorized [id number] Closed 03/07/2013 04/07/2014 1 1 Encounter Details Date Type Department Care Team (Late st Contact Info) Description 03/07/2013 Ancillary Orders [facility] Pain Management Procedures [place] [address] [place] [id number] Gage Brady MD NO ADDRESS ON FILE Thoracic or lumbosacral neuritis or radiculitis, unspecified (Primary Dx) Social History Tobacco Use Types Packs/Day Years [...] file Not on file Not on file documented as of this encounter Plan of Treatment Not on file documented as of this encounter Results * XR FLUORO NEEDLE GUIDANCE (03/07/2013 2:31 PM CDT) Anatomical Region Laterality Modality Computed Radiogr aphy Narrative 03/07/2013 2:32 PM CDT Order information only. Exam was auto-finalized. Procedure Note Irene Armstrong, RT - 03/07/2013 Order information only. Exam was auto-finalized. Gage Brady MD DIAGNOSTIC IMAGING ORDERABLES Final Result documented in this encounter Visit Diagnoses Diagnosis Thoracic or lumbosacral neuritis or radiculitis, unspecified- Primary Thoracic or lumbosacral neuritis or radiculitis, unspecified documented in this encounter Care Teams Elevator Supervisor Relationship Specialty Start Date End Date Ronnie Osborne MD [address] [place] [address] PCP - General Family Practice 03/01/13 documented as of this encounter
[2025-07-15 17:55] VITALS: BP 154/105; PULSE 118; RESP 16; TEMP 37.1; O2SAT 99; BMI 32.9
--- NOTE | 2025-07-15 17:59 | ED_ITS ---
HPI - Allergic Reaction General: Chief complaint: Allergic Reaction Stated complaint: stung by yellow jackets, L leg, forhead, R arm Time Seen by Provider: 07/15/25 17:59 Source: patient Mode of arrival: ambulatory Limitations: no limitations History of Present Illness: HPI narrative: Patient is a 50-year-old female who presents to the emergency department due to concerns of an allergic reaction secondary to yellow jackets. Patient states just prior to arrival she was swarmed by yellow jackets and stung multiple times to her left leg, arms, forehead, left hand/finger. Patient states she has had allergic reactions in the past that have presented with swelling. She has never had an anaphylactic reaction and required epinephrine. She states her throat feels slightly dry but she is not having any trouble breathing or swallowing. No lip or tongue swelling. No rash. complaint: allergic reaction Onset (ago): hour(s) Exposure: other (wasp sting) Associated symptoms: Reports other (swelling at site of stings); Deny abdominal pain, dizziness, nausea or vomiting Severity: mild Treatment prior to arrival: none Previous Allergic Reaction History: other (localized reaction/swelling) Related Data Home Medications ?Medication ?Instructions ?Recorded ?Confirmed ropinirole 1 mg tablet 1 mg PO DAILY 06/16/2412/29 metoprolol succinate 50 mg 50 mg PO DAILY 11/13/24 tablet,extended release 24 hr escitalopram oxalate 10 mg tablet 10 mg PO DAILY 11/1412/29/24 Allergies Allergy/AdvReac Type Severity Reaction Status Date / Time insect venom Allergy ALGY-Hives Verified 07/15/25 17:58 Review of Systems Const: Denies: fever(s), chills, body aches, fatigue or malaise Eyes: Denies: change in vision, blurry vision, photophobia, floaters or seeing flashes ENMT: Denies: throat pain, uvular edema, enlarged tonsils, odynophagia, mouth pain or swelling of lips/tongue Card: Denies: chest pain or lightheadedness Resp: Denies: dyspnea GI: Denies: abdominal pain, nausea, vomiting or diarrhea : Denies: flank pain or dysuria Musc: Reports: extremity pain (at sites of stings) and extremity swelling (at sites of stings); Denies: neck pain, back pain, joint pain or joint swelling Neuro: Denies: headache(s), numbness in extremities, weakness in extremities, sensory changes or dizziness PFS ED PFSH: Medical History No pertinent past medical history neghx: dm, thyroid, dvt/pe Pcp: Dr. Alva Unexpected difficult intubation Patient presented for [facility], resulting in fiberoptic intubation due to small mouth opening and large tonsils. 2 Hand mask ventilation with OA required. Addition to medical history as a precaution. Surgical History Hx of section 1998,2002 History of laparoscopic-assisted vaginal hysterectomy (~11/21/24) [facility] [place] performed by Hayes at [facility] for menorrhagia not responding to medication. Benign pathology. Family History Mother Breast cancer Diabetes Hyperlipidemia Hypertension Father Diabetes Hyperlipidemia Hypertension Sister Diabetes Hyperlipidemia Hypertension Stroke Grandmother Diabetes Denies family history of Colon cancer Ovarian cancer Prostate cancer Heart disease Uterine cancer Thyroid disease Social History Smoking and tobacco/nicotine status: never used tobacco/nicotine Physical Exam Const: COMMON NORMALS: no acute distress, average body habitus, patient oriented x3, no limitations, healthy appearing, alert and well nourished GENERAL APPEARANCE: cooperative and anxious ORIENTATION/CONSCIOUSNESS: Yes awake, Yes oriented to person, Yes oriented to place and Yes oriented to time HENMT: COMMON NORMALS: normocephalic and atraumatic HEAD & SCALP: normal to inspection, normocephalic and atraumatic FACE & SINUS: normal facial exam MOUTH: Normal oral and palatal mucosa present, lip normal and tongue normal THROAT: no uvular edema Eye: GENERAL EYE: appearance normal, both eyes and all related structures Neck/C-Spine: GENERAL: Yes normal visual inspection, No anterior neck swelling and No submandibular swelling Resp: COMMON NORMALS: normal respiratory effort and clear to auscultation bilaterally AUSCULTATION: clear to auscultation bilaterally Cardio: COMMON NORMALS: regular rate and regular rhythm RATE: regular rate RHYTHM: regular rhythm GI: COMMON NORMALS: Normal to inspection, nondistended, normoactive bowel sounds present, Soft to palpation and non-tender PALPATION: Yes Soft to palpation Extremity: NARRATIVE EXTREMITY EXAM: multiple stings to various areas with mild localized reaction/swelling GENERAL: Yes normal exam except as noted Neuro: COMMON NORMALS: patient oriented x3, moves all extremities, no focal motor deficits and no sensory deficits noted SENSORIUM/ORIENTATION: Yes alert, Yes oriented to person, Yes oriented to place and Yes oriented to time Skin: NARRATIVE SKIN EXAM: see above Course Vital Signs: Vital signs: Vital Signs Temperature 98.7 F 07/15/25 17:55 Pulse Rate 118 H 07/15/25 17:55 Respiratory Rate 16 07/15/25 17:55 Blood Pressure 154/105 07/15/25 17:55 Pulse Oximetry 99 07/15/25 17:55 Oxygen Delivery Me thod Room Air 07/15/25 17:55 MDM - Allergic Reaction Medical Decision Making Patient was given IV Solu-Medrol, Benadryl, Pepcid. She was reassessed several times and continues to be stable with no advancement of symptoms. She has no history of anaphylactic reaction. Symptoms at this time most likely related to localized envenomation reaction. She is stable for discharge. Return to ED precautions discussed. Differential Diagnosis Likely anaphylaxis, allergic reaction and urticaria Medical Records I reviewed the patient's medical records. No radiology studies performed this visit Discharge Plan Discharge Patient Disposition: Home Clinical Impression: Accidental wasp sting Condition: Stable Prescriptions: No Action metoprolol succinate 50 mg tablet extended release 24 hr 50 mg PO DAILY ropinirole 1 mg tablet 1 mg PO DAILY escitalopram oxalate 10 mg tablet 10 mg PO DAILY Discharge Orders: Discharge ED (Routine); Ordered 07/15/25 Ordered By: Shama Ferrell Referrals: Ronnie Alva MD [Primary Care Provider, Family Practice] Patient Instructions: Allergic Reaction, Insect Bite or Sting (ED), Patient Portal & Asif Instructions Print Language: Mohawk Coding Level of Care Code ED Undercover Operator for Denilson Rob
[2025-07-15] MEDS: methylPREDNISolone sod succ 125 mg/2 mL INJ IVP (18:29)
[2025-07-15] MEDS: diphenhydrAMINE 50 mg/mL SDV 1mL IVP (18:29)
[2025-07-15 19:24] VITALS: BP 122/91; PULSE 96; RESP 16; O2SAT 96
== END 2025-07-15 19:37 | disposition home or self-care (01) ==
PROVIDERS: Emergency Provider Physician Assistant; PCP Family Medicine
DX: T63.461A Toxic effect of venom of wasps, accidental (unintentional), initial encounter (principal); X58.XXXA Exposure to other specified factors, initial encounter
CPT/HCPCS: 36415; 96374; 96375; 99284; J1200; J2919; J3490